=== PATIENT | female | born 1960 | race African-American/Black ===

== ENCOUNTER 2021-07-16 15:08 | Observation (INO) | payer OTHER ==
[2021-07-16 15:18] VITALS: BMI 28.7
[2021-07-16] MEDS ORDERED: ONDANSETRON 4 MG/2 ML VIAL IVPUSH ONE (15:35)
[2021-07-16] MEDS ORDERED: FAMOTIDINE 20 MG/50 ML IVPB 20 MG/50 ML MG IVPB ONE ×2 (15:35→15:41)
[2021-07-16] MEDS ORDERED: MAG HYDROX/AL HYDROX/SIMETH 30 ML UNIT-DOSE CUP PO ONE (15:35)
[2021-07-16] MEDS ORDERED: ACETAMINOPHEN 1000 MG/100 ML BAG IVPB ONE (15:35)
[2021-07-16] MEDS ORDERED: SUCRALFATE 1 GM TABLET (FP) PO ONE (15:35)
[2021-07-16] MEDS ORDERED: SUCRALFATE 1 GM TABLET (FP) ONE (15:40)
[2021-07-16] MEDS ORDERED: MAG HYDROX/AL HYDROX/SIMETH 30 ML UNIT-DOSE CUP ONE (15:41)
[2021-07-16] MEDS ORDERED: ONDANSETRON 4 MG/2 ML VIAL ONE (15:41)
[2021-07-16] MEDS ORDERED: ACETAMINOPHEN INJECTION 100 ML IVPB ONE (15:41)
[2021-07-16 16:13] LABS: BASO % 0.2 % (0-2.0); HEMATOCRIT 41.1 % (32.4-45.2); MCH 29.4 pg (25.7-33.7); MEAN CELL VOLUME 86.5 fl (80-96); MEAN PLT VOLUME 10.1 fl (7.5-11.1); MONO % 3.6 % (3.8-10.2); NEUT % 87.2 % (42.8-82.8); PLATELET COUNT 199 10^3/uL (134-434); RBC 4.75 M/mm3 (3.60-5.2); RDW 12.7 % (11.6-15.6); WHITE BLOOD COUNT 8.4 K/mm3 (4.0-10.0)
[2021-07-16 16:36] LABS: ALBUMIN 4.5 g/dl (3.4-5.0); BLOOD UREA NITROGEN 13.5 mg/dL (7-18); CALCIUM 9.9 mg/dL (8.5-10.1); MAGNESIUM 2.3 mg/dL (1.8-2.4)
[2021-07-16 16:39] LABS: CREATININE 0.9 mg/dL (0.55-1.3)
[2021-07-16 16:41] LABS: BILIRUBIN,TOTAL 0.6 mg/dL (0.2-1); TOT PROT 8.7 g/dl (6.4-8.2)
[2021-07-16] MEDS ORDERED: PANTOPRAZOLE SODIUM 40 MG VIAL IVPUSH ONE (20:52)
[2021-07-16] MEDS ORDERED: PANTOPRAZOLE SODIUM 40 MG VIAL ONE (21:24)
[2021-07-16] MEDS: INSULIN SLIDING SCALE (NOVOLOG) 1 VIAL SQ SCH (21:34)
[2021-07-17 02:19] LABS: EPI CELLS 4 /uL (0-25.1); HYALINE CASTS 0 /uL (0-3.1); URINE APPEARANCE CLEAR; URINE BACTERIA >9,000 /uL (0-1359); URINE BILIRUBIN NEGATIVE (NEGATIVE); URINE COLOR YELLOW; URINE GLUCOSE (UA) NEGATIVE (NEGATIVE); URINE KETONE 1+ (NEGATIVE); URINE LEUK ESTERASE NEGATIVE (NEGATIVE); URINE NITRITE NEGATIVE (NEGATIVE); URINE PROTEIN TRACE (NEGATIVE); URINE RBC 3 /uL (0-23.9); URINE UROBILINOGEN 0.2 mg/dL (0.2-1.0); URINE WBC 55 /uL (0-25.8)
[2021-07-17] MEDS: INSULIN SLIDING SCALE (NOVOLOG) 1 VIAL SQ SCH ×3 (06:22→22:15)
[2021-07-17 06:30] LABS: CALCIUM 8.8 mg/dL (8.5-10.1)
[2021-07-17 06:31] LABS: ALBUMIN 3.8 g/dl (3.4-5.0); MAGNESIUM 2.4 mg/dL (1.8-2.4)
[2021-07-17 06:34] LABS: CREATININE 0.9 mg/dL (0.55-1.3); PHOSPHOROUS 2.9 mg/dL (2.5-4.9)
[2021-07-17 06:35] LABS: BILIRUBIN,TOTAL 0.9 mg/dL (0.2-1); TOT PROT 7.4 g/dl (6.4-8.2)
[2021-07-17 07:17] LABS: BASO % 0.2 % (0-2.0); EOS % 0.1 % (0-4.5); LYMPH % 10.1 % (8-40); MCHC 33.4 g/dl (32.0-36.0); MEAN CELL VOLUME 86.8 fl (80-96); MEAN PLT VOLUME 10.4 fl (7.5-11.1); MONO % 6.7 % (3.8-10.2); NEUT % 82.9 % (42.8-82.8); PLATELET COUNT 191 10^3/uL (134-434); RBC 4.49 M/mm3 (3.60-5.2); RDW 13.1 % (11.6-15.6); WHITE BLOOD COUNT 9.8 K/mm3 (4.0-10.0)
[2021-07-17] MEDS ORDERED: PANTOPRAZOLE SODIUM 40 MG/100 ML BAG IVPB ONE (09:11)
[2021-07-17] MEDS ORDERED: ENOXAPARIN NA (PORCINE) 40 MG/0.4 ML DISP.SYRIN SQ ONE (09:12)
[2021-07-17] MEDS: ENOXAPARIN NA (PORCINE) 40 MG/0.4 ML DISP.SYRIN SQ SCH (09:23)
[2021-07-17] MEDS: PANTOPRAZOLE SODIUM 40 MG VIAL IVPUSH SCH (09:23)
[2021-07-17] MEDS: ACETAMINOPHEN 325 MG TABLET (FP) PO PRN (17:04)
[2021-07-18] MEDS: ACETAMINOPHEN 325 MG TABLET (FP) PO PRN (06:48)
[2021-07-18] MEDS: INSULIN SLIDING SCALE (NOVOLOG) 1 VIAL SQ SCH ×2 (06:52→11:56)
[2021-07-18] MEDS: ENOXAPARIN NA (PORCINE) 40 MG/0.4 ML DISP.SYRIN SQ SCH (09:29)
[2021-07-18] MEDS: PANTOPRAZOLE SODIUM 40 MG VIAL IVPUSH SCH (09:29)
[2021-07-18 11:52] LABS: BLOOD UREA NITROGEN 12.3 mg/dL (7-18); CALCIUM 8.9 mg/dL (8.5-10.1)
[2021-07-18 11:56] LABS: CREATININE 0.9 mg/dL (0.55-1.3)
[2021-07-18 12:12] LABS: ALBUMIN 3.2 g/dl (3.4-5.0)
[2021-07-18 12:17] LABS: BILIRUBIN,TOTAL 0.9 mg/dL (0.2-1); TOT PROT 6.9 g/dl (6.4-8.2)
[2021-07-18] MEDS ORDERED: POTASSIUM CHLORIDE TABS 20 MEQ TABLET.ER (FP) PO ONE (13:09)
[2021-07-18 15:18] VITALS: BP 121/75; PULSE 82; TEMP 98.8
== END 2021-07-18 18:57 | disposition home or self-care (01) ==
LOC: JER 15:08 → JERBED 19:40 → J4W 07-17 18:54
PROVIDERS: ADMIT Internal Medicine
PROC: 3E033NZ Introduction of Analgesics, Hypnotics, Sedatives into Peripheral Vein, Percutaneous Approach (ICD-10-PCS; principal; 2021-07-16)
PROC: 3E023GC Introduction of Other Therapeutic Substance into Muscle, Percutaneous Approach (ICD-10-PCS; 2021-07-16)
PROC: 3E033GC Introduction of Other Therapeutic Substance into Peripheral Vein, Percutaneous Approach (ICD-10-PCS; 2021-07-16)
DX: R10.13 Epigastric pain (principal); E11.9 Type 2 diabetes mellitus without complications; I10 Essential (primary) hypertension; R11.2 Nausea with vomiting, unspecified; K76.0 Fatty (change of) liver, not elsewhere classified
CPT/HCPCS: 36415; 71046-TC-FY; 76705-TC; 80053; 80061; 81003; 82962; 83036; 83690; 83735; 84100; 84443; 84484; 85025; 93005; 93010; 93306-TC; 96365; 96372; 96375; 96376; 99285-25; C9803; G0378; U0003; U0005